=== PATIENT | female | born 1935 | race Caucasian/White ===

== ENCOUNTER 2018-03-06 07:53 | Observation (INO) | payer MEDICARE, BC ==
[2018-03-06] MEDS: TRANEXAMIC ACID IVPB ×2 (09:00→13:23)
[2018-03-06] MEDS: NS IVPB ×2 (09:00→13:23)
[2018-03-06] MEDS: [UNRECOGNIZED DRUG - OTHER] IVPB (09:00)
[2018-03-06] MEDS: DEXAMETHASONE 10 MG/ML 1 ML INJ IV (10:08)
[2018-03-06] MEDS: LACTATED RINGER'S 1,000 ML IV (10:08)
[2018-03-06] MEDS: LANSOPRAZOLE 30 MG CAP PO (10:09)
[2018-03-06] MEDS: ONDANSETRON 4 MG INJ IV ×3 (10:09→19:00)
[2018-03-06] MEDS: ACETAMINOPHEN 1000MG/100ML IV 100 ML IVPB (10:10)
[2018-03-06] MEDS: CELECOXIB 200 MG CAP PO (10:10)
[2018-03-06] MEDS ORDERED: BUPIVACAINE 0.75%/DEXT (SPINAL) 2 ML INJ (11:48)
[2018-03-06] MEDS ORDERED: morphine SULFATE/PF (10 MG/10 ML) INJ (11:48)
[2018-03-06] MEDS ORDERED: ALBUTEROL 0.083% (NEB) 2.5 MG/3 ML AMP HHN (12:00)
[2018-03-06] MEDS ORDERED: FENTAnyl 50 MCG/ML VIAL IV ×2 (12:00)
[2018-03-06] MEDS ORDERED: METOCLOPRAMIDE 10 MG INJ IV (12:00)
[2018-03-06] MEDS ORDERED: HYDROmorphONE 1 MG/5 ML IV SYRINGE IV ×2 (12:00)
[2018-03-06] MEDS ORDERED: ONDANSETRON 4 MG INJ IV (12:00)
[2018-03-06] MEDS ORDERED: MEPERIDINE 25 MG INJ IV (12:00)
[2018-03-06] MEDS ORDERED: DIPHENHYDRAMINE 50 MG INJ IV ×2 (12:00→12:30)
[2018-03-06] MEDS ORDERED: NALOXONE (0.4 MG/ML) INJ IV (12:30)
[2018-03-06] MEDS ORDERED: BISACODYL 10 MG SUPP PR (12:30)
[2018-03-06] MEDS ORDERED: NA PHOSPHATE/BIPHOS 133 ML ENEMA PR (12:30)
[2018-03-06] MEDS ORDERED: BETHANECHOL 25 MG TAB PO (12:30)
[2018-03-06] MEDS ORDERED: MAGNESIUM HYDROXIDE 30ML CUP PO (12:30)
[2018-03-06] MEDS ORDERED: SENNA/DOCUSATE NA (8.6MG/50MG) TAB PO (12:30)
[2018-03-06] MEDS ORDERED: MIDAZOLAM 1 MG/ML 2 ML INJ (12:41)
[2018-03-06] MEDS ORDERED: LIDOCAINE 100 MG SYRINGE (13:15)
[2018-03-06] MEDS ORDERED: SUCCINYLCHOLINE CHLORIDE 100 MG/5 ML SYG IV (13:15)
[2018-03-06] MEDS ORDERED: ROCURONIUM 50 MG INJ (13:15)
[2018-03-06] MEDS ORDERED: CEFAZOLIN 1 GM INJ (13:15)
[2018-03-06] MEDS ORDERED: PROPOFOL 20 ML (13:15)
[2018-03-06] MEDS ORDERED: CLINDAMYCIN 900 MG/D5W (PMX) 50 ML IVPB (13:15)
[2018-03-06] MEDS ORDERED: SUGAMMADEX SODIUM 200 MG/2 ML VIAL IV (13:15)
[2018-03-06] MEDS: POLYMYXIN/BACITRACIN 1L IRRIG (13:22)
[2018-03-06] MEDS: [UNRECOGNIZED DRUG - OTHER] IVPB (13:23)
[2018-03-06] MEDS ORDERED: CLINDAMYCIN 600 MG/D5W (PMX) 50 ML IVPB (14:00)
[2018-03-06] MEDS ORDERED: DEXAMETHASONE 4 MG/ML 1 ML INJ (14:45)
[2018-03-06] MEDS ORDERED: ONDANSETRON 4 MG INJ (15:57)
[2018-03-06] MEDS ORDERED: METOCLOPRAMIDE 10 MG INJ (15:57)
[2018-03-06] MEDS: DOCUSATE SODIUM 100 MG CAP PO (16:49)
[2018-03-06] MEDS: CEFAZOLIN 1 GM/50 ML (PMX) 50 ML IVPB ×2 (16:49→23:03)
[2018-03-06] MEDS: SOD CHLORIDE 0.9% 1,000 ML IV ×2 (16:50→23:03)
[2018-03-06] MEDS: ASPIRIN (EC) 325 MG TAB PO (16:50)
[2018-03-06] MEDS ORDERED: VANCOMYCIN 1 GM (PMX) 250 ML IVPB (18:00)
[2018-03-06] MEDS: GABAPENTIN 300 MG CAP PO (20:14)
[2018-03-06] MEDS: CELECOXIB 100 MG CAP PO (20:15)
[2018-03-07] MEDS: ONDANSETRON 4 MG INJ IV ×2 (00:32→05:43)
[2018-03-07 05:58] LABS: ADD MAN DIFF? NO
[2018-03-07 06:20] LABS: ABNORMAL IP MESSAGE 1; HEMATOCRIT 32.4 % (37.0-47.0); HEMOGLOBIN 10.9 g/dl (12.0-16.0); LYMPHOCYTES # 0.4 10^3/ul (0.8-2.9); LYMPHOCYTES % 4.1 % (15.0-51.0); MEAN CORPUSCULAR HEMOGLOBIN 32.8 pg (29.0-33.0); MEAN CORPUSCULAR HGB CONC 33.6 g/dl (32.0-37.0); MEAN CORPUSCULAR VOLUME 97.6 fl (82.0-101.0); MEAN PLATELET VOLUME 10.5 fl (7.4-10.4); MONOCYTE # 0.6 10^3/ul (0.3-0.9); MONOCYTES % 6.3 % (0.0-11.0); NEUTROPHILS % 89.2 % (39.0-77.0); PLATELET COUNT 121 10^3/UL (140-415); RED BLOOD COUNT 3.32 10^6/ul (4.20-5.40); RED CELL DISTRIBUTION WIDTH 14.8 % (11.5-14.5)
[2018-03-07 06:20] LABS: WHITE BLOOD COUNT 10.1 10^3/ul (4.8-10.8)
[2018-03-07 06:29] LABS: POSITIVE DIFF @See below
[2018-03-07 06:34] LABS: ADD UMIC NO; UR ASCORBIC ACID NEGATIVE (NEGATIVE); UR BILIRUBIN (Dip) NEGATIVE (NEGATIVE); UR BLOOD (Dip) NEGATIVE (NEGATIVE); UR CLARITY CLEAR (CLEAR); UR COLOR YELLOW (YELLOW); UR GLUCOSE (Dip) NEGATIVE (NEGATIVE); UR KETONES (Dip) NEGATIVE (NEGATIVE); UR LEUKOCYTE ESTERASE (Dip) NEGATIVE Leu/ul (NEGATIVE); UR NITRITE (Dip) NEGATIVE (NEGATIVE); UR SPECIFIC GRAVITY (Dip) 1.018 (1.003-1.030); UR TOTAL PROTEIN (Dip) NEGATIVE (NEGATIVE); UR UROBILINOGEN (Dip) NEGATIVE (NEGATIVE)
[2018-03-07 06:48] LABS: ANION GAP 11 (8-16); BLOOD UREA NITROGEN 17 mg/dl (7-20); CALCIUM 8.5 mg/dl (8.4-10.2); CARBON DIOXIDE 27 mmol/L (21-31); CHLORIDE 101 mmol/L (97-110); CREATININE 0.69 mg/dl (0.44-1.00); GLUCOSE 125 mg/dl (70-220); SODIUM 135 mmol/L (135-144)
[2018-03-07 06:50] LABS: FREE T4 (FREE THYROXINE) 1.23 ng/dl (0.85-1.93)
[2018-03-07 07:15] LABS: CHOL/HDL RATIO 2.1 RATIO; CHOLESTEROL 175 mg/dl (100-200); HDL CHOLESTEROL 83 mg/dl (33-92); LDL CHOLESTEROL,CALCULATED 85 mg/dl; MAGNESIUM 1.5 mg/dl (1.7-2.5); TRIGLYCERIDES 33 mg/dl (0-149)
[2018-03-07 07:15] LABS: PHOSPHORUS 3.5 mg/dl (2.5-4.9)
[2018-03-07 07:26] LABS: THYROID STIMULATING HORMONE 0.359 MIU/L (0.465-4.680)
[2018-03-07] MEDS: MULTIVITAMINS THERAPEUTIC TAB PO (08:49)
[2018-03-07] MEDS: DEXAMETHASONE 4 MG/ML 1 ML INJ IV (08:49)
[2018-03-07] MEDS: CEFAZOLIN 1 GM/50 ML (PMX) 50 ML IVPB (08:49)
[2018-03-07] MEDS: ATORVASTATIN 10 MG TAB PO (08:50)
[2018-03-07] MEDS: ASPIRIN (EC) 325 MG TAB PO (08:50)
[2018-03-07] MEDS: CELECOXIB 100 MG CAP PO ×2 (08:50→20:14)
[2018-03-07] MEDS: DOCUSATE SODIUM 100 MG CAP PO ×2 (08:50→20:13)
[2018-03-07] MEDS: FERROUS FUMARATE (SR) TAB PO ×2 (08:50→20:14)
[2018-03-07] MEDS: LOSARTAN 25 MG TAB PO (08:51)
[2018-03-07] MEDS: AMLODIPINE 10 MG TAB PO (08:51)
[2018-03-07] MEDS: METOPROLOL (XL) 25 MG TAB PO (08:52)
[2018-03-07] MEDS: PANTOPRAZOLE (EC) 40 MG TAB PO (08:54)
[2018-03-07] MEDS: MAGNESIUM CHLORIDE (SR) 64 MG TAB PO (11:45)
[2018-03-07] MEDS: SOD CHLORIDE 0.9% 1,000 ML IV (13:24)
[2018-03-07] MEDS: HYDROCODONE/APAP (10/325) TAB PO ×2 (14:21→20:13)
[2018-03-07] MEDS: GABAPENTIN 300 MG CAP PO (20:13)
[2018-03-07] MEDS: HYDROCODONE/APAP (5/325) TAB PO (23:01)
[2018-03-08] MEDS: SOD CHLORIDE 0.9% 1,000 ML IV ×2 (01:54→12:58)
[2018-03-08 04:54] LABS: ADD MAN DIFF? NO
[2018-03-08 05:01] LABS: WHITE BLOOD COUNT 11.4 10^3/ul (4.8-10.8)
[2018-03-08 05:01] LABS: BASOPHILS % 0.1 % (0.0-2.0); HEMATOCRIT 28.2 % (37.0-47.0); HEMOGLOBIN 9.8 g/dl (12.0-16.0); LYMPHOCYTES # 0.8 10^3/ul (0.8-2.9); LYMPHOCYTES % 7.3 % (15.0-51.0); MEAN CORPUSCULAR HEMOGLOBIN 33.9 pg (29.0-33.0); MEAN CORPUSCULAR HGB CONC 34.8 g/dl (32.0-37.0); MEAN CORPUSCULAR VOLUME 97.6 fl (82.0-101.0); MONOCYTE # 1.3 10^3/ul (0.3-0.9); NEUTROPHIL # 9.2 10^3/ul (1.6-7.5); PLATELET COUNT 110 10^3/UL (140-415); RED BLOOD COUNT 2.89 10^6/ul (4.20-5.40); RED CELL DISTRIBUTION WIDTH 15.1 % (11.5-14.5)
[2018-03-08] MEDS: PANTOPRAZOLE (EC) 40 MG TAB PO (05:06)
[2018-03-08] MEDS: HYDROCODONE/APAP (10/325) TAB PO ×5 (05:06→20:49)
[2018-03-08 05:22] LABS: ANION GAP 7 (8-16); BLOOD UREA NITROGEN 23 mg/dl (7-20); CALCIUM 8.3 mg/dl (8.4-10.2); CARBON DIOXIDE 27 mmol/L (21-31); CHLORIDE 103 mmol/L (97-110); CREATININE 0.62 mg/dl (0.44-1.00); GLUCOSE 110 mg/dl (70-220); POTASSIUM 4.2 mmol/L (3.5-5.1); SODIUM 133 mmol/L (135-144)
[2018-03-08] MEDS ORDERED: PANTOPRAZOLE (EC) 40 MG TAB PO (06:00)
[2018-03-08] MEDS: DOCUSATE SODIUM 100 MG CAP PO ×2 (08:38→20:46)
[2018-03-08] MEDS: CELECOXIB 100 MG CAP PO ×2 (08:38→20:46)
[2018-03-08] MEDS: MULTIVITAMINS THERAPEUTIC TAB PO (08:39)
[2018-03-08] MEDS: ATORVASTATIN 10 MG TAB PO (08:39)
[2018-03-08] MEDS: AMLODIPINE 10 MG TAB PO (08:39)
[2018-03-08] MEDS: ASPIRIN (EC) 325 MG TAB PO (08:39)
[2018-03-08] MEDS: FERROUS FUMARATE (SR) TAB PO ×2 (08:39→20:46)
[2018-03-08] MEDS: LOSARTAN 25 MG TAB PO (08:39)
[2018-03-08] MEDS: METOPROLOL (XL) 25 MG TAB PO (08:41)
[2018-03-08] MEDS: GABAPENTIN 300 MG CAP PO (20:46)
[2018-03-09] MEDS: HYDROCODONE/APAP (10/325) TAB PO ×3 (00:51→09:17)
[2018-03-09] MEDS: SOD CHLORIDE 0.9% 1,000 ML IV (02:54)
[2018-03-09] MEDS: PANTOPRAZOLE (EC) 40 MG TAB PO (05:18)
[2018-03-09 05:38] LABS: ADD MAN DIFF? NO; BASOPHILS % 0.4 % (0.0-2.0); EOSINOPHILS # 0.1 10^3/ul (0.0-0.5); EOSINOPHILS % 1.7 % (0.0-7.0); HEMATOCRIT 29.5 % (37.0-47.0); HEMOGLOBIN 9.9 g/dl (12.0-16.0); LYMPHOCYTES # 0.8 10^3/ul (0.8-2.9); LYMPHOCYTES % 9.9 % (15.0-51.0); MEAN CORPUSCULAR HEMOGLOBIN 33.1 pg (29.0-33.0); MEAN CORPUSCULAR HGB CONC 33.6 g/dl (32.0-37.0); MEAN CORPUSCULAR VOLUME 98.7 fl (82.0-101.0); MEAN PLATELET VOLUME 10.5 fl (7.4-10.4); MONOCYTE # 1.1 10^3/ul (0.3-0.9); MONOCYTES % 13.5 % (0.0-11.0); NEUTROPHIL # 5.9 10^3/ul (1.6-7.5); NEUTROPHILS % 73.9 % (39.0-77.0); PLATELET COUNT 108 10^3/UL (140-415); RED BLOOD COUNT 2.99 10^6/ul (4.20-5.40); RED CELL DISTRIBUTION WIDTH 15.2 % (11.5-14.5)
[2018-03-09 06:20] LABS: ANION GAP 10 (8-16); BLOOD UREA NITROGEN 25 mg/dl (7-20); CALCIUM 8.3 mg/dl (8.4-10.2); CARBON DIOXIDE 27 mmol/L (21-31); CHLORIDE 99 mmol/L (97-110); CREATININE 0.69 mg/dl (0.44-1.00); GLUCOSE 89 mg/dl (70-220); POTASSIUM 4.6 mmol/L (3.5-5.1); SODIUM 131 mmol/L (135-144)
[2018-03-09] MEDS: METOPROLOL (XL) 25 MG TAB PO (09:00)
[2018-03-09] MEDS: CELECOXIB 100 MG CAP PO (09:16)
[2018-03-09] MEDS: FERROUS FUMARATE (SR) TAB PO (09:16)
[2018-03-09] MEDS: DOCUSATE SODIUM 100 MG CAP PO (09:16)
[2018-03-09] MEDS: ASPIRIN (EC) 325 MG TAB PO (09:16)
[2018-03-09] MEDS: ATORVASTATIN 10 MG TAB PO (09:16)
[2018-03-09] MEDS: MULTIVITAMINS THERAPEUTIC TAB PO (09:16)
[2018-03-09] MEDS: AMLODIPINE 10 MG TAB PO (09:20)
[2018-03-09] MEDS: LOSARTAN 25 MG TAB PO (09:20)
== END 2018-03-09 14:00 ==
LOC: REC 07:53 → MS1 17:10
DX: M17.12 Unilateral primary osteoarthritis, left knee (principal); J43.9 Emphysema, unspecified; E78.5 Hyperlipidemia, unspecified; N32.81 Overactive bladder; K21.9 Gastro-esophageal reflux disease without esophagitis; E87.1 Hypo-osmolality and hyponatremia; Z87.891 Personal history of nicotine dependence; Z96.649 Presence of unspecified artificial hip joint
CPT/HCPCS: 27447; 73560; 80048; 80061; 81003; 83735; 84100; 84439; 84443; 85025; 86850; 86900; 86901; 87081; 87086; 88304; 88311; 97110; 97116; 97162; 97166; 97530; 97535; 99217; C1776